=== PATIENT | female | born 1940 | race African-American/Black ===

== ENCOUNTER 2022-04-04 11:44 | Inpatient (IN) | payer OTHER ==
[~2022-04-04] VITALS: Ht 162.6 cm; Wt 66.7 kg
--- NOTE | 2022-04-04 12:00 | NUR ---
BIB [facility] FROM HOME, SYNCOPAL EPISODE X 2, BLOOD SUGAR 127
--- NOTE | 2022-04-04 12:30 | NUR ---
22g started on the right ac dressed and saline lock
--- NOTE | 2022-04-04 12:40 | NUR ---
blood collected and sent to the lab
[2022-04-04 12:52] LABS: BASOPHILS % (AUTO) 0.7 % (0.0-2.0); EOSINOPHILS % (AUTO) 1.5 % (0.0-6.0); HEMATOCRIT 29 % (33-45); HEMOGLOBIN 9.2 g/dL (11.5-14.8); LYMPHOCYTES # (AUTO) 1.3 K/uL (0.8-4.8); LYMPHOCYTES % (AUTO) 41.9 % (20.0-44.0); MEAN CORPUSCULAR HGB CONC 32 g/dl (31.0-36.0); MEAN CORPUSCULAR VOLUME 88 fL (82-100); MONOCYTES # (AUTO) 0.3 K/uL (0.1-1.30); MONOCYTES % (AUTO) 9.5 % (2.0-12.0); NEUTROPHILS # (AUTO) 1.5 K/uL (1.8-8.9); NEUTROPHILS % (AUTO) 46.4 % (43.0-81.0); PLATELET COUNT (AUTO) 315 K/uL (150-450); RED BLOOD CELL COUNT(AUTO) 3.26 MIL/uL (4.0-5.2); WHITE BLOOD COUNT (AUTO) 3.2 K/uL (4.3-11.0)
[2022-04-04 12:58] LABS: ALANINE AMINOTRANSFERASE 24 U/L (12-78); ALBUMIN 3.5 g/dL (3.4-5.0); ALKALINE PHOSPHATASE 73 U/L (46-116); ASPARTATE AMINOTRANSFERASE 26 U/L (15-37); BILIRUBIN,DIRECT 0.1 mg/dL (0.0-0.2); BILIRUBIN,TOTAL 0.5 mg/dL (0.2-1.0); CALCIUM, SERUM 9.5 mg/dL (8.5-10.1); CARBON DIOXIDE 27 mmol/L (21-32); CHLORIDE 101 mmol/L (98-107); CREATININE 0.9 mg/dL (0.6-1.3); GLUCOSE 158 mg/dL (74-106); POTASSIUM 3.7 mmol/L (3.5-5.1); SODIUM SERUM 134 mmol/L (136-145); TOTAL PROTEIN, SERUM 8.1 g/dL (6.4-8.2); UREA NITROGEN, BLOOD 11 mg/dL (7-18)
--- NOTE | 2022-04-04 13:14 | NUR ---
covid swab taken and sent to lab
--- NOTE | 2022-04-04 13:22 | NUR ---
ultrasound came positive for DVT
[2022-04-04] MEDS ORDERED: DONE10TA44 PO (13:52)
[2022-04-04] MEDS ORDERED: LEVO25TA7 PO (13:52)
[2022-04-04] MEDS ORDERED: CARV6.252 PO (13:52)
[2022-04-04] MEDS ORDERED: SERT25TA PO (13:52)
[2022-04-04] MEDS ORDERED: FERR325T23 PO (13:52)
--- NOTE | 2022-04-04 14:25 | NUR ---
BED GIVEN 325-1
[2022-04-04] MEDS ORDERED: IOHEXOL-350 100 ML VIAL IV ONE (15:07)
[2022-04-04] MEDS ORDERED: CT SWABBABLE VALVE TRANS SET 1 EA INFUS.SET MC ONE (15:08)
[2022-04-04] MEDS ORDERED: IV NS 0.9% 250 ML IV ONE (15:08)
--- NOTE | 2022-04-04 15:11 | NUR ---
MRSA swab taken and sent to lab
--- NOTE | 2022-04-04 15:31 | NUR ---
PT RETURNED FROM CT
--- NOTE | 2022-04-04 15:57 | NUR ---
pt taken to room 325-1 for jhony
[2022-04-04] MEDS ORDERED: ZOLPIDEM TARTRATE 5 MG TABLET PO PRN (16:00)
[2022-04-04] MEDS ORDERED: HYDROCODONE/APAP 10/325MG TABLET PO PRN (16:00)
[2022-04-04] MEDS ORDERED: Z GUARD REMEDY 4 OZ OINT TP PRN (16:00)
[2022-04-04] MEDS ORDERED: MAGNESIUM HYDROXIDE 30 ML UDC PO PRN (16:00)
[2022-04-04] MEDS ORDERED: MAG HYDROX/AL HYDROX/SIMETH 30 ML UDC PO PRN (16:00)
[2022-04-04] MEDS ORDERED: IV NS 0.9% 1,000 ML IV PRN (16:00)
[2022-04-04] MEDS ORDERED: HYDROCODONE/APAP 5/325MG TABLET PO PRN (16:00)
[2022-04-04] MEDS ORDERED: ACETAMINOPHEN 325 MG TABLET PO PRN (16:00)
[2022-04-04] MEDS ORDERED: ONDANSETRON HCL/PF 4 MG/2 ML VIAL IVP PRN (16:00)
[2022-04-04] MEDS ORDERED: ALPRAZOLAM 0.25 MG TABLET PO PRN (16:00)
[2022-04-04] MEDS ORDERED: ENOXAPARIN SODIUM 30 MG/0.3 ML DISP.SYRIN SQ SCH (16:30)
[2022-04-04 17:50] LABS: THYROID STIMULATING HORMONE 5.795 uIU/mL (0.358-3.74)
[2022-04-04] MEDS: CARVEDILOL 6.25 MG TABLET PO SCH (18:07)
[2022-04-04] MEDS: ENOXAPARIN SODIUM 60 MG/0.6 ML DISP.SYRIN SQ SCH (18:08)
--- NOTE | 2022-04-04 18:17 | NUR ---
PLATE WASHERREGISTERED SAFETY ENGINEER NOTE PLATE WASHERREGISTERED SAFETY ENGINEER NOTE PATIENT ARRIVED FROM ER WITH THE GRANDDAUGHTER VIA GURNEY AROUND 1600H, ALERT/ORIENTED X 3-4, PT ABLE TO MAKE NEEDS KNOWN. PATIENT STABLE ON RA, NO S/S OF DISTRESS OR SOB NOTED, BREATHING EVEN AND UNLABORED. PATIENT PLACED ON EXTERNAL WAITER/WAITRESS BUFFET READING SR, HR: 90. IV ACCESS ON RIGHT AC #22G INTACT AND FLUSHING WELL, SALINE LOCKED. ORIENTED PATIENT TO ROOM AND HOW TO USE CALL LIGHT. ALL MD ORDERS HAS BEEN CARRIED OUT. ALL MEDS GIVEN. KEPT COMFORTABLE. NO C/O PAIN OR DISCOMFORT AT THIS TIME. SAFETY MEASURES IN PLACE: CALL LIGHT WITHIN REACH, SIDE RAILS UP X 2, BED LOCKED IN LOWEST POSITION. ENDORSED TO INCOMING NOD.
[2022-04-04 18:42] VITALS: BP 145/80
--- NOTE | 2022-04-04 19:50 | NUR ---
RN OPENING NOTES RECEIVED PT IN BED, AWAKE, ON CELL PHONE. AOx3, ABLE TO MAKE NEEDS KNOWN. ON RA AND TOLERATING WELL. NO SOB NOTED. NO S/SX OF RESPIRATORY DISTRESS NOTED. IV ACCESS IN RAC #22G RUNNING NS @50 ML/HR. SAFETY PRECAUTIONS IN PLACE: BED IN LOWEST, LOCKED POSITION, SIDERAILS UPx2, AND BRAKES ON. TABLE AND CALL LIGHT WITHIN REACH. ALL NEEDS MET AT THIS TIME.
[2022-04-04] MEDS ORDERED: DONEPEZIL 5 MG TABLET PO SCH (22:00)
--- NOTE | 2022-04-04 23:35 | NUR ---
RN NOTES DIALYSIS ENDED. PT TOLERATED WELL. 2 LITERS REMOVED PER HD NURSE. Addendum: 04/04/22 at 2336 by CORUTNEY PERSON RN WRONG PATIENT. PLEASE DISREGARD.
[2022-04-05 06:27] LABS: CALCIUM, SERUM 8.9 mg/dL (8.5-10.1); CREATININE 0.8 mg/dL (0.6-1.3); MAGNESIUM 2.1 mg/dL (1.8-2.4); PHOSPHORUS 3.5 mg/dL (2.5-4.9); POTASSIUM 3.3 mmol/L (3.5-5.1)
[2022-04-05 06:31] LABS: EOSINOPHILS % (AUTO) 1.7 % (0.0-6.0); HEMATOCRIT 25 % (33-45); HEMOGLOBIN 8.3 g/dL (11.5-14.8); LYMPHOCYTES # (AUTO) 1.8 K/uL (0.8-4.8); LYMPHOCYTES % (AUTO) 58.7 % (20.0-44.0); MEAN CORPUSCULAR HGB CONC 33 g/dl (31.0-36.0); MEAN CORPUSCULAR VOLUME 86 fL (82-100); MONOCYTES # (AUTO) 0.5 K/uL (0.1-1.30); MONOCYTES % (AUTO) 16.7 % (2.0-12.0); NEUTROPHILS # (AUTO) 0.7 K/uL (1.8-8.9); NEUTROPHILS % (AUTO) 21.9 % (43.0-81.0); PLATELET COUNT (AUTO) 277 K/uL (150-450); RED BLOOD CELL COUNT(AUTO) 2.89 MIL/uL (4.0-5.2); WHITE BLOOD COUNT (AUTO) 3.1 K/uL (4.3-11.0)
[2022-04-05 06:45] LABS: THYROID STIMULATING HORMONE 4.642 uIU/mL (0.358-3.74)
--- NOTE | 2022-04-05 06:49 | NUR ---
RN CLOSING NOTES PT IN BED, AWAKE, WATCHING TV. AOx3, ABLE TO MAKE NEEDS KNOWN. ON RA AND TOLERATING WELL. NO SOB NOTED. NO S/SX OF RESPIRATORY DISTRESS NOTED. IV ACCESS IN RAC #22G RUNNING NS @50 ML/HR. ALL ORDERS CARRIED OUT. ALL NEEDS MET. PT KEPT CLEAN AND DRY. SAFETY PRECAUTIONS IN PLACE: BED IN LOWEST, LOCKED POSITION, SIDERAILS UPx2, AND BRAKES ON. TABLE AND CALL LIGHT WITHIN REACH. WILL ENDORSE TO ONCOMING SHIFT FOR FRANCISCO JAVIER.
[2022-04-05] MEDS ORDERED: LEVOTHYROXINE SODIUM 25 MCG TABLET PO SCH (07:30)
[2022-04-05] MEDS ORDERED: PANTOPRAZOLE 40 MG TABLET.DR PO SCH (07:30)
--- NOTE | 2022-04-05 07:30 | NUR ---
RN Opening Note Patient AOx4 able to express her concerns. Patient states no issues. No signs of distress or discomfort. Will continue to monitor throughout shift. All safety precautions taken, call light and table within reach, bed at lowest position.
[2022-04-05 08:00] VITALS: BP 106/79
[2022-04-05] MEDS: ENOXAPARIN SODIUM 60 MG/0.6 ML DISP.SYRIN SQ SCH (08:36)
[2022-04-05] MEDS: CARVEDILOL 6.25 MG TABLET PO SCH (08:36)
[2022-04-05] MEDS ORDERED: SERTRALINE HCL 25 MG TABLET PO SCH (09:00)
[2022-04-05] MEDS ORDERED: APIXABAN 2.5 MG TABLET PO SCH ×2 (09:00→17:00)
[2022-04-05] MEDS ORDERED: FERROUS SULFATE (325 MG) 325 MG/TAB TABLET PO SCH (09:00)
[2022-04-05] MEDS ORDERED: POTASSIUM CHLORIDE 20 MEQ TAB.PRT.SR PO ONE (09:30)
[2022-04-05 11:07] LABS: *SPE A/G RATIO 0.8 (0.7-1.7); *SPE ALPHA-1-GLOBULIN 0.3 g/dL (0.0-0.4); *SPE ALPHA-2-GLOBULIN 0.6 g/dL (0.4-1.0); *SPE BETA GLOBULIN 1.1 g/dL (0.7-1.3); *SPE M-SPIKE Not Observed g/dL (Not Observed)
[2022-04-05 12:00] VITALS: BP 142/70
[2022-04-05 12:18] LABS: BAND % (MANUAL) 4 % (0.0-5.0); EOSINOPHILS % (MANUAL) 2 % (0-4); NEUTROPHILS % (MANUAL) 25 (42-76)
[2022-04-05 12:19] LABS: LYMPHOCYTES % (MANUAL) 56 % (16-48); MONOCYTES % (MANUAL) 13 % (0-11.0)
--- NOTE | 2022-04-05 15:18 | NUR ---
IHSS application: Per CM, family expressed interested in IHSS services for pt. SW printed IHSS brochure and IHSS application and met with pt. and granddaughter, Vi Vu [phone] at bedside. SW explained application process. Granddaughter stated she will help her grandmother apply for [employer] and then apply for IHSS services. Noted. SW addressed their questions.
[2022-04-05] MEDS ORDERED: PANT40TA49 PO (15:42)
[2022-04-05] MEDS ORDERED: APIX2.5T PO (15:42)
--- NOTE | 2022-04-05 17:00 | NUR ---
tar worker Note Patient AOx4 able to express her own concern. Per MD patient meets discharge criteria. Educated granddaughter at bedside and patient on discharge instructions and precaution. All sefety precautions taken, patient discharge out of unit safely.
== END 2022-04-05 16:55 | disposition home or self-care (01) | DRG 74 ==
LOC: ER 11:48 → TELE 14:54
PROVIDERS: ADMIT Nurse Practitioner Acute Care; ATTEND Internal Medicine
DX: G90.8 Other disorders of autonomic nervous system (principal); I82.512 Chronic embolism and thrombosis of left femoral vein; F02.83 Dementia in other diseases classified elsewhere, unspecified severity, with mood disturbance; F02.84 Dementia in other diseases classified elsewhere, unspecified severity, with anxiety; Z20.822 Contact with and (suspected) exposure to COVID-19; I10 Essential (primary) hypertension; Z86.79 Personal history of other diseases of the circulatory system; I89.0 Lymphedema, not elsewhere classified; G30.9 Alzheimer's disease, unspecified; E03.9 Hypothyroidism, unspecified; F32.A Depression, unspecified; D63.8 Anemia in other chronic diseases classified elsewhere; F41.9 Anxiety disorder, unspecified; Z87.440 Personal history of urinary (tract) infections; E04.1 Nontoxic single thyroid nodule; Z79.899 Other long term (current) drug therapy; Z79.890 Hormone replacement therapy; Z95.818 Presence of other cardiac implants and grafts
CPT/HCPCS: 36415; 71045-TC; 76536-TC; 80048-TC; 80061-TC; 80076-TC; 82728-TC; 83540-TC; 83735-TC; 83880; 84100-TC; 84155; 84165; 84439-TC; 84443-TC; 84484-TC; 85025-TC; 85378-TC; 85730-TC; 87081-TC; 93307-TC; 93970-TC; 97112-TC; 97116-TC; 97530-TC; G0378; J1650; J7030; J7050; Q9967